=== PATIENT | female | born 1950 | race African-American/Black ===

== ENCOUNTER 2020-10-24 08:06 | Outpatient (REF) | payer MEDICARE, SELFPAY ==
[2020-10-24 09:24] LABS: Alanine Aminotransferase 23 U/L (0-31); Albumin Level 4.6 g/dL (3.5-5.0); Alkaline Phosphatase 105 U/L (39-117); Anion Gap 15 (12-20); Aspartate Amino Transferase 24 U/L (5-31); Bilirubin Total 0.7 mg/dL (0.0-1.0); Blood Urea Nitrogen 11 mg/dL (9-16); Calcium 9.9 mg/dL (8.4-10.2); Carbon Dioxide 24 mmol/L (22-29); Chloride 106 mmol/L (96-108); Cholesterol 211 mg/dL; Estimated Glomerular Filt Rate > 60; Glucose Fasting 132 mg/dL (60-99); HDL Cholesterol 55 mg/dL; LDL Cholesterol Calculated 135 mg/dl; Potassium 3.9 mmol/L (3.3-5.1); Sodium 141 mmol/L (135-145); Triglycerides 107 mg/dL
== END 2020-10-24 08:07 | disposition home or self-care (01) ==
LOC: HO.LAB 08:06
PROVIDERS: PCP Internal Medicine; Visit Provider Internal Medicine
DX: I10 Essential (primary) hypertension (principal); E78.5 Hyperlipidemia, unspecified
CPT/HCPCS: 36415; 80053; 80061

== ENCOUNTER 2020-12-12 09:37 | Outpatient (REF) | payer MEDICARE, SELFPAY ==
--- NOTE | ~2020-12-12 | MM_ITS ---
EXAMINATION: MM SCREENING DIGITAL BREAST TOMOSYNTHESIS, BILATERAL CLINICAL INFORMATION: Screening. Asymptomatic. The lifetime risk of breast cancer based on the Tyrer-Cuzick Model is 4%. COMPARISON: Mammography: 02/17/2018, 04/27/2015 TECHNIQUE: Digital breast tomosynthesis is performed in both the craniocaudal and mediolateral oblique views along with computer-aided detection (CAD). Synthesized 2D images are generated from the tomosynthesis. FINDINGS: There are scattered areas of fibroglandular density (ACR BI-RADS breast composition Category b). There are no significant masses, abnormal calcifications, or other abnormalities. Parenchymal pattern is similar to prior studies. The axilla and skin contours are unremarkable. MM/MM tomosynthesis screening BI IMPRESSION: No mammographic evidence of malignancy. ASSESSMENT: BI-RADS 1: Negative RECOMMENDATION: Routine annual mammography screening. This patient's information was entered into a reminder system with a target due date for their next mammogram.
== END 2020-12-12 09:38 | disposition home or self-care (01) ==
LOC: HO.MAMMO 09:37
PROVIDERS: PCP Internal Medicine; Visit Provider Internal Medicine
DX: Z12.31 Encounter for screening mammogram for malignant neoplasm of breast (principal)
CPT/HCPCS: 77063; 77067

== ENCOUNTER 2022-08-12 12:10 | Outpatient (REF) | payer MEDICARE, MEDICAID, SELFPAY ==
--- NOTE | ~2022-08-12 | MM_ITS ---
EXAMINATION: MM SCREENING DIGITAL BREAST TOMOSYNTHESIS, BILATERAL CLINICAL INFORMATION: Screening. Asymptomatic. The lifetime risk of breast cancer based on the Tyrer-Cuzick Model is 3%. COMPARISON: Mammography: 12/12/2020, 02/17/2018, 04/27/2015 TECHNIQUE: Digital breast tomosynthesis is performed in both the craniocaudal and mediolateral oblique views along with computer-aided detection (CAD). Synthesized 2D images are generated from the tomosynthesis. FINDINGS: There are scattered areas of fibroglandular density (ACR BI-RADS breast composition Category b). There are no significant masses, abnormal calcifications, or other abnormalities. No architectural abnormality or developing density or significant change from prior studies. The axilla and skin contours are unremarkable. MM/MM tomosynthesis screening BI IMPRESSION: No mammographic evidence of malignancy. ASSESSMENT: BI-RADS 1: Negative RECOMMENDATION: Routine annual mammography screening. This patient's information was entered into a reminder system with a target due date for their next mammogram.
== END 2022-08-12 12:11 | disposition home or self-care (01) ==
LOC: HO.MAMMO 12:10
PROVIDERS: Visit Provider Internal Medicine
DX: Z12.31 Encounter for screening mammogram for malignant neoplasm of breast (principal)
CPT/HCPCS: 77063; 77067

== ENCOUNTER 2023-09-24 07:43 | Outpatient (AMB) | payer MEDICARE, MEDICAID, SELFPAY ==
[2023-09-24 07:46] VITALS: BP 128/82; BMI 29.1
--- NOTE | 2023-09-24 07:46 | A.OFFPC_ITS ---
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 Accompanied by: Self / Same As Patient Allergies ibuprofen [From Motrin] Allergy (Intermediate, Verified 09/24/23 08:07) Abdominal Pain morphine [Morphine] Allergy (Mild, Verified 09/24/23 08:07) VOMITING/DIZZINESS/HTN Medication List - Last Reconciled 09/24/23 by Dorie Spencer MD diltiazem HCl ER 300 mg PO QAM 90 days hydrochlorothiazide 25 mg PO QAM 90 days pravastatin 40 mg PO DAILY 90 days Tobacco use date assessed: 09/24/23 Fall risk assessment: No Falls in past year Last assessed Fall Risk: 09/24/23 Dental Screening Dental Screen Date: 09/24/23 Did you have a dental visit in the last 12 months?: No Did you have a dental problem in the last 6 months where you did not have access to dental care?: No Was dental information given to patient?: Patient has dentist HPI HPI Comments History of Present Illness Details This is a 72-year-old female with hypertension, dyslipidemia, overweight and elevated fasting blood glucose that comes today for follow-up on her conditions. Blood pressure stable. Lipid panel will be order. She is overweight with a BMI of 29.1 and was advised to do diet and exercise as tolerated. Fasting blood glucose will be repeated she denies unintentional weight loss and polydipsia. Has some polyuria secondary to hydrochlorothiazide. Last colonoscopy was 2008 which was normal and she has no family history of colon cancer and denies blood in the stool. She prefers Cologuard than 2 repeat colonoscopy. Denies any chest pain or shortness of breath. [facility] Medical History Overweight (BMI 25.0-29.9) Elevated fasting glucose Dyslipidemia Essential hypertension Surgical History History of total hysterectomy Family History Father No problems noted. Mother Diabetes Hypertension Social History Housing: House Alcohol intake: current Alcohol intake frequency: a few times a week Alcohol type: beer Patient Tobacco Use Status: Never used Tobacco e-Cigarette/Vaping Use: Never Used Second Hand Smoke Exposure: No Substance Use Type: Marijuana service: No Current occupational status: retired Cognitive needs: No Hearing needs: No Vision needs: No Questionnaire PHQ-9 Over the last 2 weeks, how often have you been bothered by any of the following problems? 1. Little interest or pleasure in doing things: not at all 2. Feeling down, depressed, or hopeless: not at all 3. Trouble falling or staying asleep, or sleeping too much: not at all 4. Feeling tired or having little energy: not at all 5. Poor appetite or overeating: not at all 6. Feeling bad about yourself - or that you are a failure or have let yourself or your family down: not at all 7. Trouble concentrating on things, such as reading the newspaper or watching television: not at all 8. Moving or speaking so slowly that other people could have noticed. Or the opposite - being so fidgety or restless that you have been moving around a lot more than usual: not at all 9. Thoughts that you would be better off or of hurting yourself in some way: not at all Total score: 0 Depression Screening Interpretation: Negative Depression Screening Done: Yes 40452 - PHQ-9 Billing: Yes Source: Developed by Drs. Michael Walter, Aziza Quesada, Ko Capps and colleagues, with an educational karen from [employer]. Thrive Questionnaire Date Thrive assessed: 09/24/23 I am a: Patient What is your living situation today?: I have a steady place to live Within the past 12 months, did the food you bought not last and you didn't have the money to get more?: Never true Within the past 12 months, did you worry whether your food would run out before you got money to buy more?: Never true Do you have trouble paying for medicines?: No Do you have trouble getting transportation to medical appointments?: No Do you have trouble paying your heating and electricity bill?: No Do you have trouble taking care of your child, family member or friend?: No Do you have trouble with day-to-day activities such as bathing, preparing meals, shopping, managing finances, etc.?: No Are you currently unemployed and looking for a job?: No Are you interested in more education?: No Please select the resources that you would like help with: None Currently or been in a relationship where the following occur: no concerns reported THRIVE Score: 0 AUDIT C Alcohol Use Questionnaire (AUDIT-C) 1. How often do you have a drink containing alcohol?: 4 or more times a week 2. How many drinks containing alcohol do you have on a typical day when you are drinking?: 1 or 2 3. How often do you have six or more drinks on one occasion?: Never Total Score: 4 NICK-7 AMB Questionnaire NICK-7 Date NICK - 7 assessed: 09/24/23 Feeling nervous, anxious, or on edge: 0 = Not at all Not being able to stop or control worryin = Not at all Worrying too much about different things: 0 = Not at all Trouble relaxin = Not at all Being so restless that it is hard to sit still: 0 = Not at all Becoming easily annoyed or irritable: 0 = Not at all Feeling afraid as if something awful might happen: 0 = Not at all Total NICK-7 score (0-4 normal; 5-9 mild; 10-14 moderate; 15-21 severe): 0 Source: Developed by Drs. Michael Walter, Aziza Quesada, Ko Capps and colleagues, with an educational karen from [employer]. NICK-7 Assessment Billing NICK-7 Assessment Tool: NICK-7 Assessment 19959 Review of Systems Const All systems reviewed & are unremarkable except as noted in HPI and below Eyes Reports no additional complaints, Denies change in vision and Denies other visual disturbances Card Denies chest pain at rest, Denies chest pain with activity, Denies edema, Denies irregular heart rhythm, Denies claudication, Denies dyspnea, Denies dyspnea on exertion, Denies orthopnea, Denies paroxysmal nocturnal dyspnea and Denies slow heart rate Resp Denies cough, Denies dyspnea and Denies dyspnea on exertion Physical exam (Primary Care) Vital Signs: Last Vital Signs BP 128/82 09/24/23 07:46 BMI result Body Mass Index 29.1 Tobacco/Smoking Status: Tobacco use Status Tobacco use date assessed 09/24/23 09/24/23 07:54 Patient Tobacco Use Status Never used Tobacco 09/24/23 07:54 Tobacco use type 09/24/23 07:54 e-Cigarette/Vaping Use Never Used 09/24/23 07:54 PHQ-9: PHQ-9 Score PHQ-9: Total score 0 09/24/23 08:13 Depression Screening Interpretation: Negative Thrive Assessment: Date of Thrive Assessment Date Thrive assessed 09/24/23 09/24/23 07:54 Currently or been in a relationship where the following occur: no concerns reported Resp Effort & Inspection: normal respiratory effort Auscultation: clear to auscultation bilaterally Cardio Jugular venous distension: no JVD Rate: regular rate Rhythm: regular rhythm Heart sounds: S1 normal heart sound present and S2 normal heart sound present Extrem General: Yes full ROM Assessment and Plan Assessment & Plan (1) Dyslipidemia: Code(s): E78.5 - Hyperlipidemia, unspecified Plan: Continue statins. Repeat lipid panel. (2) Essential hypertension: Code(s): I10 - Essential (primary) hypertension Plan: Continue diltiazem and hydrochlorothiazide. Blood pressure goal is equal or less than 130/80. (3) Elevated fasting glucose: Code(s): R73.01 - Impaired fasting glucose Plan: Repeat fasting blood glucose. Start low-carbohydrate diet. (4) Overweight (BMI 25.0-29.9): Code(s): E66.3 - Overweight Plan: Do diet and exercise. Orders: Orders XR DEXA axial skeleton Today N95.9 - Unspecified menopausal and perimenopausal disorder Lipid Panel Today E78.5 - Hyperlipidemia, unspecified Comprehensive [place]. Panel Fast Today I10 - Essential (primary) hypertension Referrals Cologuard Test Z12.11 - Encounter for screening for malignant neoplasm of colon, Z12.12 - Encounter for screening for malignant neoplasm of rectum Coding Level of Care Code Est Pt Level 4 (77313) Diagnoses Dyslipidemia E78.5 Essential hypertension I10 Elevated fasting glucose R73.01 Overweight (BMI 25.0-29.9) E66.3 Additional Codes NICK-7 Assessment Billing - NICK-7 Assessment Tool: NICK-7 Assessment [id number] ([id number]) Time Spent (min) 23
== END 2023-09-24 08:16 | disposition home or self-care (01) ==
PROVIDERS: PCP Internal Medicine; Visit Provider Internal Medicine
DX: E78.5 Hyperlipidemia, unspecified (principal); I10 Essential (primary) hypertension; R73.01 Impaired fasting glucose; E66.3 Overweight
CPT/HCPCS: 99214

== ENCOUNTER 2023-09-30 13:21 | Outpatient (REF) | payer MEDICARE, SELFPAY | END 2023-09-30 13:22 | disposition home or self-care (01) | LOC: HO.MAMMO 13:21 | PROVIDERS: PCP Internal Medicine; Visit Provider Internal Medicine | DX: Z12.31 Encounter for screening mammogram for malignant neoplasm of breast (principal) | CPT/HCPCS: 77063; 77067 ==

== ENCOUNTER → 2023-09-30 14:00 | Outpatient (BNV) | payer MEDICARE, SELFPAY | PROVIDERS: PCP Internal Medicine; Visit Provider Radiology Diagnostic Radiology | DX: Z12.31 Encounter for screening mammogram for malignant neoplasm of breast (principal) | CPT/HCPCS: 77063; 77067 ==

== ENCOUNTER 2023-12-31 09:58 | Outpatient (REF) | payer MEDICARE, MEDICAID, SELFPAY ==
--- NOTE | ~2023-12-31 | MM_ITS ---
EXAMINATION: BONE DENSITOMETRY CLINICAL INDICATION: Unspecified menopausal and perimenopausal disorder. COMPARISON: Baseline BD dated 01/20/2008. TECHNIQUE: Using a [employer] DXA System (software version: 13.1) manufactured by [employer], dual-energy x-ray absorptiometry was performed of the lumbar spine and left hip. The images are of good technical quality. Summary results are attached. FINDINGS: LEFT FEMUR, NECK: Current: BMD 0.820 g/cm2, Z-score -0.8, T-score -1.6, osteopenia. Baseline: BMD 0.898 g/cm2. LEFT FEMUR, TOTAL: Current: BMD 0.940 g/cm2, Z-score -0.1, T-score -0.5, normal, 12.7% decrease from baseline (<5% change is not significant). Baseline: BMD 1.077 g/cm2. AP SPINE L1-L4: Current: BMD 1.214 g/cm2, Z-score 1.1, T-score 0.3, normal, 2.9% increase from baseline (<5% change is not significant). Baseline: BMD 1.180 g/cm2. IDENTIFIED RISK FACTORS: Early menopause, secondary osteoporosis, hysterectomy, bilateral oophorectomy, height loss. HISTORY OF FRACTURE: None listed. MEDICATIONS: None listed. MM/XR DEXA axial skeleton IMPRESSION: 1. DIAGNOSIS: Osteopenia based on the lowest T-score value of -1.6 in the femoral neck applying World Health Organization criteria. 2. 10-YEAR FRACTURE RISK PREDICTION, FRAX: Major osteoporotic fracture (clinical spine, forearm, hip or shoulder) 4.6%. Hip fracture 0.7%. 3. Treatment Recommendations: NOF guidelines recommend consideration for treatment in postmenopausal women and men age 50 and older presenting with the following: -A hip or vertebral (clinical or morphometric) fracture. -T-score less than or equal to -2.5 at the femoral neck or spine after appropriate evaluation to exclude secondary causes. -Low bone mass at the hip or spine and a 10-year fracture probability by FRAX of greater than or equal to 3% for hip fracture or greater than or equal to 20% for major osteoporotic fracture based on the [place] adapted WHO algorithm. 4. Other Recommendations: All treatment decisions require clinical judgment and consideration of individual patient factors, including patient preferences, comorbidities, previous drug use, risk factors not captured in the FRAX model (e.g. frailty, falls, vitamin D deficiency, increased bone turnover, interval significant decline in bone density) and possible under or overestimation of fracture risk by FRAX. Additional medical evaluation for secondary cause of low bone mineral density may be appropriate. FUTURE SCAN RECOMMENDATION: People with diagnosed cases of osteoporosis or at high risk for fracture should have regular bone mineral density tests. For patients eligible for Medicare, routine testing is allowed once every 2 years. The testing frequency can be increased to one year for patients who have rapidly progressing disease, those who are receiving or discontinuing medical therapy to restore bone mass, or have additional risk factors.
== END 2023-12-31 09:59 | disposition home or self-care (01) ==
LOC: HO.MAMMO 09:58
PROVIDERS: PCP Internal Medicine; Visit Provider Internal Medicine
DX: Z13.820 Encounter for screening for osteoporosis (principal); Z78.0 Asymptomatic menopausal state
CPT/HCPCS: 77080

== ENCOUNTER 2024-06-16 13:52 | Outpatient (AMB) | payer MEDICARE, MEDICAID, SELFPAY ==
--- NOTE | 2024-06-16 13:55 | A.OFFPC_ITS ---
Vital Signs 06/16/24 14:05 Height 5 ft 1 in Weight 149 lb BMI 28.2 BP 138/80 Blood Pressure Location Lt brachial Position Sitting Intake Visit Reasons: lipids Intake Note: Patient here for a follow up Lipids Quality Assurance Representative Required: No Accompanied by: Self / Same As Patient Allergies ibuprofen [From Motrin] Allergy (Intermediate, Verified 06/16/24 14:17) Abdominal Pain morphine [Morphine] Allergy (Mild, Verified 06/16/24 14:17) VOMITING/DIZZINESS/HTN Medication List - Last Reconciled 06/16/24 by Dorie Spencer MD cholecalciferol (vitamin D3) 25 mcg PO DAILY 90 days diltiazem HCl ER 300 mg PO QAM 90 days hydrochlorothiazide 25 mg PO QAM 90 days pravastatin 40 mg PO DAILY 90 days Tobacco use date assessed: 06/16/24 Fall risk assessment: No Falls in past year Last assessed Fall Risk: 06/16/24 Dental Screening Dental Screen Date: 06/16/24 Did you have a dental visit in the last 12 months?: No Did you have a dental problem in the last 6 months where you did not have access to dental care?: No Was dental information given to patient?: Patient has dentist HPI HPI Comments History of Present Illness Details The patient is a 73-year-old female presenting with hypertension management and preventive care. She reports losing 5 pounds, weight decreased from 154 to 149 pounds, likely due to dietary changes and medication. She has a history of essential hypertension for which she takes hydrochlorothiazide 25 mg and pravastatin 40 mg. The patient reports good blood pressure control. She also mentions osteopenia, as noted in a previous bone density test, and currently takes vitamin D supplements. She inquired about calcium supplementation. The patient has allergies to Ibuprofen (Motrin) and Morphine. There was discussion about difficulty with previous stool-based colon cancer screening due to frequent urination, with a recommendation for colonoscopy. She has not had a recent pneumonia vaccine. The patient did not report any recent blood tests results. Last DEXA scan last year showed osteopenia and I will send calcium to start. REPLACED BY [facility] Medical History (Updated 06/16/24 @ 19:27 by Dorie Spencer MD) Overweight (BMI 25.0-29.9) Elevated fasting glucose Dyslipidemia Essential hypertension Surgical History History of total hysterectomy Family History Father No problems noted. Mother Diabetes Hypertension Social History Housing: House Alcohol intake: current Alcohol intake frequency: a few times a week Alcohol type: beer Patient Tobacco Use Status: Never used Tobacco e-Cigarette/Vaping Use: Never Used Second Hand Smoke Exposure: No Substance Use Type: Marijuana service: No Current occupational status: retired Cognitive needs: No Hearing needs: No Vision needs: No Questionnaire PHQ-9 Over the last 2 weeks, how often have you been bothered by any of the following problems? 1. Little interest or pleasure in doing things: not at all 2. Feeling down, depressed, or hopeless: not at all 3. Trouble falling or staying asleep, or sleeping too much: nearly every day 4. Feeling tired or having little energy: not at all 5. Poor appetite or overeating: not at all 6. Feeling bad about yourself - or that you are a failure or have let yourself or your family down: not at all 7. Trouble concentrating on things, such as reading the newspaper or watching television: not at all 8. Moving or speaking so slowly that other people could have noticed. Or the opposite - being so fidgety or restless that you have been moving around a lot more than usual: not at all 9. Thoughts that you would be better off or of hurting yourself in some way: not at all Total score: 3 Depression Screening Interpretation: Negative Depression Screening Done: Yes 42358 - PHQ-9 Billing: Yes Source: Developed by Drs. Michael Walter, Aziza Quesada, Ko Capps and colleagues, with an educational karen from [employer]. Thrive Questionnaire Date Thrive assessed: 06/16/24 I am a: Patient What is your living situation today?: I have a steady place to live Within the past 12 months, did the food you bought not last and you didn't have the money to get more?: Never true Within the past 12 months, did you worry whether your food would run out before you got money to buy more?: Never true Do you have trouble paying for medicines?: No Do you have trouble getting transportation to medical appointments?: No Do you have trouble paying your heating and electricity bill?: No Do you have trouble taking care of your child, family member or friend?: No Do you have trouble with day-to-day activities such as bathing, preparing meals, shopping, managing finances, etc.?: No Are you currently unemployed and looking for a job?: No Are you interested in more education?: No Please select the resources that you would like help with: None Currently or been in a relationship where the following occur: No concerns reported THRIVE Score: 0 AUDIT C Alcohol Use Questionnaire (AUDIT-C) 1. How often do you have a drink containing alcohol?: 4 or more times a week 2. How many drinks containing alcohol do you have on a typical day when you are drinking?: 1 or 2 3. How often do you have six or more drinks on one occasion?: Never Total Score: 4 NICK-7 AMB Questionnaire NICK-7 Date NICK - 7 assessed: 06/16/24 Feeling nervous, anxious, or on edge: 0 = Not at all Not being able to stop or control worryin = Not at all Worrying too much about different things: 0 = Not at all Trouble relaxin = Not at all Being so restless that it is hard to sit still: 0 = Not at all Becoming easily annoyed or irritable: 0 = Not at all Feeling afraid as if something awful might happen: 0 = Not at all Total NICK-7 score (0-4 normal; 5-9 mild; 10-14 moderate; 15-21 severe): 0 Source: Developed by Drs. Michael Walter, Aziza Quesada, Ko Capps and colleagues, with an educational karen from [employer]. NICK-7 Assessment Billing NICK-7 Assessment Tool: NICK-7 Assessment 67825 Review of Systems Const All systems reviewed & are unremarkable except as noted in HPI and below Card Denies chest pain at rest, Denies chest pain with activity, Denies edema, Denies irregular heart rhythm, Denies claudication, Denies dyspnea, Denies dyspnea on exertion, Denies orthopnea, Denies paroxysmal nocturnal dyspnea and Denies slow heart rate Resp Denies cough, Denies dyspnea and Denies dyspnea on exertion Physical exam (Primary Care) Vital Signs: Last Vital Signs BP 138/80 06/16/24 14:05 BMI result Body Mass Index 28.2 Tobacco/Smoking Status: Tobacco use Status Tobacco use date assessed 06/16/24 06/16/24 14:13 Patient Tobacco Use Status Never used Tobacco 06/16/24 13:58 Tobacco use type 09/24/23 08:17 e-Cigarette/Vaping Use Never Used 06/16/24 13:58 PHQ-9: PHQ-9 Score PHQ-9: Total score 3 06/16/24 14:31 Depression Screening Interpretation: Negative Thrive Assessment: Date of Thrive Assessment Date Thrive assessed 06/16/24 06/16/24 13:58 Currently or been in a relationship where the following occur: No concerns reported Resp Effort & Inspection: normal respiratory effort Auscultation: clear to auscultation bilaterally Cardio Jugular venous distension: no JVD Rate: regular rate Rhythm: regular rhythm Heart sounds: S1 normal heart sound present and S2 normal heart sound present Extrem General: Yes full ROM Office Procedures Flu Questionnaire Does the patient have a severe egg allergy?: No Does the patient have severe life threatening allergies?: No Does the patient have a fever or illness today?: No Has the patient ever had Guillain-[place] Syndrome?: No Has the patient ever had any past reaction to a flu shot?: No Immunizations Fluarix Triv [id number] (PF) 45 mcg (15 mcg x 3)/0.5 mL IM syringe Performing Provider: Dorie Spencer MD Performing Location: [facility] Administered by: VERONICA Brizuela on 06/16/24 14:32 Dose Route Admin Location Dispensed Lot Number Expiration Date [facility] Charging Manipulator 0.5 mL IM Left Deltoid 0.5 mL [id number] 11/22/24 [id number] Amorelie VIS Given Date VIS Provided VIS Publication Date 06/16/24 Single Vaccine 20 Eligibility Eligibility Date Funding Source Not [facility] Eligible 06/16/24 Private pneumoc 20-dave conj-dip cr(PF) 0.5 mL IM syringe Performing Provider: Dorie Spencer MD Performing Location: [facility] Administered by: MUNA BrizuelaAndres on 06/16/24 14:32 Dose Route Admin Location Dispensed Lot Number Expiration Date [employer] Charging Manipulator 0.5 mL IM Right Deltoid 0.5 mL [id number] 09/23/25 [employer] VIS Given Date VIS Provided VIS Publication Date 06/16/24 Single Vaccine 21 Eligibility Eligibility Date Funding Source Not [facility] Eligible 06/16/24 Private Coding Level of Care Code Est Pt Level 4 (02248) Complex EM visit Add On G2211 Diagnoses Essential hypertension I10 Dyslipidemia E78.5 Osteopenia M85.80 Elevated fasting glucose R73.01 Hypovitaminosis D E55.9 Additional Codes NICK-7 Assessment Billing - NICK-7 Assessment Tool: NICK-7 Assessment 06006 ([id number]) PHQ-9 - 35707 - PHQ-9 Billing: Yes ([id number]) Time Spent (min) 22 Assessment & Plan Assessment & Plan (1) Essential hypertension: Code(s): I10 - Essential (primary) hypertension Category: Medical (2) Dyslipidemia: Code(s): E78.5 - Hyperlipidemia, unspecified Category: Medical (3) Osteopenia: Code(s): M85.80 - Other specified disorders of bone density and structure, unspecified site Category: Medical (4) Elevated fasting glucose: Code(s): R73.01 - Impaired fasting glucose Category: Medical (5) Hypovitaminosis D: Code(s): E55.9 - Vitamin D deficiency, unspecified Category: Medical Plan - Perform colonoscopy for colon cancer screening due to difficulty with prior stool-based screening methods. - Order blood work to monitor cholesterol levels. - Administer pneumonia and influenza vaccines today. - Initiate calcium supplementation in addition to current vitamin D for osteopenia management. - Reinforce adherence to current antihypertensive and cholesterol-lowering medications. - Educate about continuing lifestyle modifications to support weight management and hypertension control. - Follow up on any new symptoms, particularly regarding weight loss and shortness of breath. Patient was informed and verbally consented to the use of an ambient scribe for clinic note documentation during this visit. I discussed the importance of preventive care measures, such as colonoscopy for colon cancer screening, due to difficulty with other stool-based methods. I explained the simplicity and minimal discomfort associated with the colonoscopy procedure. The patient consented to proceed with the pneumonia and flu vaccinations, understanding the benefits of preventing respiratory infections. I emphasized the importance of ongoing management of her hypertension and osteopenia, including initiating calcium supplementation. We discussed the plan for blood work to monitor hyperlipidemia and clarified that the lab orders are electronic, eliminating the need for paper requisitions. The patient agreed to follow up with any new symptoms and maintain her current medication regimen. Orders: Orders Comprehensive [place]. Panel Fast Today I10 - Essential (primary) hypertension Influenza [id number] Immunization Today Z23 - Encounter for immunization Pneumococcal 20 Immunization Today Z23 - Encounter for immunization Lipid Panel Today E78.5 - Hyperlipidemia, unspecified Referrals Open Access Screening Colonoscopy Referral Z12.12 - Encounter for screening for malignant neoplasm of rectum Medications: New calcium carbonate 600 mg PO BID 180 tabs 1RF 90 days M85.80 - Other specified disorders of bone density and structure, unspecified site Patient Instructions: - Schedule a colonoscopy as soon as possible. - Obtain blood work for cholesterol monitoring this week. - Receive pneumonia and flu vaccines before leaving today. - Start taking calcium supplements as advised. - Continue taking your prescribed medications for hypertension and cholesterol. - Remain attentive to any new symptoms, especially related to weight loss or shortness of breath. - Follow recommended lifestyle changes to support health, including considering exercise indoors due to cold weather outside.
[2024-06-16 14:05] VITALS: BP 138/80; BMI 28.2
== END 2024-06-16 14:36 | disposition home or self-care (01) ==
PROVIDERS: PCP Internal Medicine; Visit Provider Internal Medicine
DX: I10 Essential (primary) hypertension (principal); E78.5 Hyperlipidemia, unspecified; M85.80 Other specified disorders of bone density and structure, unspecified site; R73.01 Impaired fasting glucose; E55.9 Vitamin D deficiency, unspecified; Z23 Encounter for immunization

== ENCOUNTER → 2024-06-16 13:52 | Outpatient (BNVA) | payer MEDICARE, MEDICAID, SELFPAY | PROVIDERS: PCP Internal Medicine; Visit Provider Internal Medicine | DX: Z23 Encounter for immunization (principal); I10 Essential (primary) hypertension; E78.5 Hyperlipidemia, unspecified; M85.80 Other specified disorders of bone density and structure, unspecified site; R73.01 Impaired fasting glucose; E55.9 Vitamin D deficiency, unspecified | CPT/HCPCS: 90471; 90656; 90677; 96127; 99212 ==

== ENCOUNTER 2024-11-02 11:04 | Outpatient (REF) | payer MEDICARE, MEDICAID, SELFPAY | END 2024-11-02 11:05 | disposition home or self-care (01) | LOC: HO.MAMMO 11:04 | PROVIDERS: PCP Internal Medicine; Visit Provider Internal Medicine | DX: Z12.31 Encounter for screening mammogram for malignant neoplasm of breast (principal) | CPT/HCPCS: 77063; 77067 ==

== ENCOUNTER → 2024-11-02 11:30 | Outpatient (BNV) | payer MEDICARE, MEDICAID, SELFPAY | PROVIDERS: PCP Internal Medicine; Visit Provider Internal Medicine | DX: Z12.31 Encounter for screening mammogram for malignant neoplasm of breast (principal) | CPT/HCPCS: 77063; 77067 ==